=== PATIENT | female | born 1960 | race Caucasian/White ===

== ENCOUNTER 2020-06-23 07:30 | Observation (INO) | payer OTHER, SELFPAY ==
[~2020-06-23] VITALS: Ht 157.5 cm; Wt 85.5 kg
[2020-06-28 06:51] VITALS: BP 150/82
--- NOTE | 2020-06-28 11:20 | NUR ---
ADMITED PT FROM OR/RECOVERY. PT IS A/A/OX4 DENIES AWLTER. RESP EVEN AND UNLABORED WITH CLEAR BS BILAT. DENIES ANY SOB/CP/PRESSURE AT THIS TIME. NO EDEMA WITH IV TO LAC. ABD SOFT, TENDER TO TOUCH WITH ACTIVE BS X4. DENIES ANY N/V AT THIS TIME. S/P VAGINAL HYSTORECTOMY WITH LABIAL CYST REMOVAL. RT LABIA WITH SUTURES AND ARACELI. SCANT/SMALL AMOUNT OF VAGINAL BLEEDING NOTED. PT C/O MILD CRAMPING TO PELVIC AREA DENIES NEED FOR PAIN MEDS AT THIS TIME. KENNEY CATH TO GRAVITY WITH YELLOW URINE. ORIENTED TO ROOM AND CALL LIGHT SYSTEM. CALL LIGHT IN REACH NEEDS ATTENDED.
--- NOTE | 2020-06-28 15:00 | NUR ---
PT RESTING AT THIS TIME. AMBULATED TO BEDSIDE CHAIR. TOLERATED ACTIVITY WELL. PT ALSO ASSISTED TO BR FOR PERICARE WITH GOOD ACTIVITY TOLERANCE. CALL LIGHT IN REACH NEEDS ATTENDED TO.
[2020-06-28 15:40] VITALS: BP 142/78
[2020-06-28 16:35] VITALS: BP 116/66
--- NOTE | 2020-06-28 17:25 | NUR ---
DR. Kirti RESENDIZ CALLED MADE AWARE PT STAYING OVERNIGHT OK BY . PT DIABETIC REQUESTING METFORMIN. PER MD OK TO START HOME MED METFORMIN 500MG PO BID AND ADD INSULIN AND ACCUCHECK PROTOCOL. STOP LR AND START NS AT 125ML/HR. CONT.
--- NOTE | 2020-06-28 18:25 | NUR ---
PT C/O PAIN 5/10 MEDICATED WITH MOTRIN PO. CALL LIGHT IN REACH. SCAM/ SMALL AMOUNT OF BLEEDING NOTED WITH 2 PADS CHANGES DURING THE SHIFT. CALL LIGHT IN REACH NEEDS ATTENDED TO.
[2020-06-28 19:57] VITALS: BP 133/70
--- NOTE | 2020-06-28 20:00 | NUR ---
received pt aox4, vss, resting comfortably.
--- NOTE | 2020-06-29 04:07 | NUR ---
VSS, aox4, c/o perineal pain 2/2 incision site medicated with motrin x1 with good effect. Incision site open to air/c/d/i, irma-care done, pads changed x1 during shift w/ small amount of serosanguineous drainage. IVF/IV abx infusing. Plan for dc in AM. continue POC.
[2020-06-29 05:00] VITALS: BP 107/56
--- NOTE | 2020-06-29 06:57 | NUR ---
vss, aox4, no complaints at this time.
--- NOTE | 2020-06-29 07:30 | NUR ---
RECEIVED REPORT FROM WAREHOUSE DELIVERY MANAGER RN. PT IS AOX4, SITTING UP IN BED AND WATCHING TV. STATES THAT SHE FEELS BETTER THIS MORNING. IBUPROFEN IS HELPING WITH THE PAIN. PT IS ABLE TO AMBULATE TO THE BATHROOM. PT IS ASKING IF SHE CAN GET A BSC WHENEVER SHE GOES HOME AND TOLD THAT WILL LET [facility] KNOW. NO ACUTE DISTRESS IS NOTED. WILL CONTINUE TO MONITOR PT THROUGHOUT THE SHIFT. CALL LIGHT IS WITHIN REACH AND BED IN LOW POSITION.
[2020-06-29 08:19] VITALS: BP 110/62
[2020-06-29 11:54] VITALS: BP 134/71
--- NOTE | 2020-06-29 14:29 | NUR ---
SPOKE WITH DR. Simin RESENDIZ WITH ORDER OK TO ARRANGE BSC FROM . WITH ORDER TO D/C PT HOME TODAY.
[2020-06-29 14:40] VITALS: BP 134/71
[2020-06-29 15:54] VITALS: BP 114/68
--- NOTE | 2020-06-29 18:42 | NUR ---
PT GIVEN DC INSTRUCTIONS AND VERBALIZES UNDERSTANDING. SHE STATES THAT DR RESENDIZ ALREADY GAVE HER 2 PRESCRIPTIONS FOR PAIN MEDICATIONS AND SHE WILL FOLLOW UP WITH HIM ON Jul. IV TAKEN OUT AND TIP INTACT. PT UNDERSTANDS THAT [facility] IS STILL WORKING WITH HER INSURANCE TO GET HER A BSC AND IF APPROVED WILL BE SENT TO HER HOUSE. DAUGHTER IS HERE TO PICKLING SOLUTION MAKER PT. ALL BELONGINGS SENT WITH PT.
== END 2020-06-29 18:51 | disposition home or self-care (01) ==
LOC: OR 07:30 → MU 06-28 06:06 → DS 06-28 07:30 → MU 06-28 07:30 → EDSTATUS 06-28 07:30 → OR 06-28 07:30 → MU 06-28 11:19
PROVIDERS: ADMIT Obstetrics & Gynecology; ATTEND Obstetrics & Gynecology
DX: N81.4 Uterovaginal prolapse, unspecified (principal); I10 Essential (primary) hypertension; E11.9 Type 2 diabetes mellitus without complications; R32 Unspecified urinary incontinence
CPT/HCPCS: 82962; G0378; J0131; J0690; J2175; J2250; J2270; J2405; J2704; J3010; J7030; J7120; U0003